=== PATIENT | female | born 1990 | race Caucasian/White ===

== ENCOUNTER 2022-05-25 17:33 | Observation (INO) | payer OTHER, MEDICAID, SELFPAY ==
[2022-05-25] VITALS (16 sets, daily range): BP systolic 122–163; BP diastolic 68–88; PULSE 110–121; RESP 18–30; TEMP 36.9–37.7; O2SAT 95–100; BMI 31.1
--- NOTE | 2022-05-25 17:48 | DI.RAD.S_ITS ---
PROCEDURE: XR CHEST 1V INDICATIONS: suspected sepsis TECHNIQUE: One view of the chest was acquired. COMPARISON: [facility], , CHEST 2 VIEW, 03/24/2011, 14:49. FINDINGS: Surgical changes and devices: There is a right internal jugular catheter with the tip projecting over the superior vena cava approximately 1.5 cm from the cavoatrial junction. Lungs and pleura: Lungs are clear. No pleural effusions or pneumothorax. Mediastinum: Mediastinal contours appear normal. Heart size is normal. Bones and chest wall: No suspicious bony lesions. Overlying soft tissues appear unremarkable. IMPRESSION: 1. No evidence of pneumothorax. Dictated by: Ki Swain M.D. on 05/25/2022 at 20:17 Approved by: Ki Swain M.D. on 05/25/2022 at 20:19
--- NOTE | 2022-05-25 18:15 | ED_ITS ---
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 Patient states 2 days ago she may or may not have scraped her left leg and developed redness swelling which has rapidly progressed up her leg. She states she went to [place] last night was not seen although the leg does have purple marker circling areas. Patient states she has had chills but no fevers. She denies chest pain or shortness of breath. She denies nausea or vomiting. She denies diarrhea constipation. She denies urinary symptoms. She has pain in the leg she states it hurts a lot to walk. Patient states no numbness or tingling. She states the redness has been spreading. Patient is denying any surgeries. She states she uses tobacco, she denies alcohol, she denies any street drugs such as marijuana or IV or injectable drugs. Related Data Home Medications Medication Instructions Recorded Confirmed [THYROID MEDICATION] ##0 03/26/17 Previous Rx's Medication Instructions Recorded amoxicillin 875 mg-potassium 875 mg PO BID #14 tabs 03/26/17 clavulanate 125 mg tablet (Augmentin) clindamycin HCl 300 mg capsule 300 mg PO Q6H #28 caps 03/26/17 Allergies Allergy/AdvReac Type Severity Reaction Status Date / Time acetaminophen [ACETAMINOPHEN] Allergy Unknown Verified 05/25/22 17:44 Review of Systems Review of Systems ROS Unobtainable: All systems reviewed & are unremarkable except as noted in HPI and below Patient History Social History Smoking Status: Current every day smoker Smoking Status: Current every day smoker tobacco type: cigarettes Substance Use Type: unknown Exam Narrative Exam Narrative: GENERAL: Alert and oriented x three, female in mild distress. HEENT: Head normocephalic, atraumatic, EOMI, pupils reactive, face symmetric, moist mucous membranes NECK: Supple, full range of motion CARDIOVASCULAR: Tachycardic. Regular rate and rhythm without murmurs, rubs or gallops. RESPIRATORY: Breath sounds equal bilaterally, no wheezes rales or rhonchi. ABDOMEN: Soft, nontender. Normoactive bowel sounds all 4 quadrants. No guarding or rebound, rigidity, no mass : No CVA tenderness EXTREMITIES: Normal range of motion, no clubbing. Neurovascularly intact. Patient has significant swelling of the lower extremity she had 2 large patches of erythema which were marked reportedly from yesterday 05 24, they have spread extensively patchy with erythema tracking up her leg NEUROLOGICAL: Cranial nerves II through XII grossly intact. Moving all extremities SKIN: Warm, dry, no petechiae, no rashes or lesions. Initial Vital Signs Initial Vital Signs: Vital Signs Temperature 98.4 F 05/25/22 17:44 Pulse Rate 118 H 05/25/22 17:44 Respiratory Rate 24 05/25/22 17:44 Blood Pressure 143/88 H 05/25/22 17:44 Pulse Oximetry 100 05/25/22 17:44 Oxygen Delivery Method 05/25/22 17:44 Procedures Central Line Placement Right IJ: Time Out Performed: Yes Patient Placed on Monitor/Pulse Ox: Yes MD Prep: mask, gown and gloves Central Line Prep: Povidone-Iodine 1%, Chlorhexidine scrub and sterile drapes applied Local Anesthetic: lidocaine 1% Amount of anesthesia used (mL): 5 Ultrasound Used for Placement: Yes Central Line Lumen Inserted: triple Post Procedure: sutured in place (device used.), good blood return, all ports aspirated, flushed, capped and sterile dressing applied Post Procedure X-Ray: tip of catheter in good position and no pneumothorax seen Patient Tolerated Procedure: Well Complications: other (patient had short run of tachycardia/irregular beats w/ guidewire pulled back and stopped.) Course Orders Ordered: ED Orders 05/25/22 17:48 XR chest 1V Stat EKG-12 Lead Stat RT Consult Eval and Treat NOW 05/25/22 18:00 COVID19 -Nasal RAPID/Pre-Proc Stat 05/25/22 18:40 Complete Blood Count AUTO DIFF Stat Comprehensive Metabolic Panel Stat Lipase Stat Procalcitonin Stat 05/25/22 20:09 CT LE LT w con Stat COVID19 -Nasal RAPID/Pre-Proc Stat 05/25/22 20:49 Lactate (Lactic Acid) Stat Partial Thromboplastin Time Stat Test Serum,Qual Stat Prothrombin Time INR Stat 05/25/22 21:00 Urine Drug Screen, Rapid Stat Urine Microscopic Stat 05/25/22 21:02 Blood Culture Stat Calcium Carbonate (Calcium Carbonate 500 Mg Tab) 1,000 mg PO Q4HR PRN PRN Reason: Dyspepsia Enoxaparin Sodium (Enoxaparin 40 Mg/0.4 Ml Syringe) 40 mg SUBCUT DAILY KATHRINE Sodium Chloride (Normal Saline 0.9%) 2,313.33 mls @ 771.11 mls/hr 30 ml/kg infuse over 3 hr (2313.33 ml) IV NOW ONE Stop: 05/25/22 23:08 Last Admin: 05/25/22 21:00 Dose: 771.11 mls/hr Documented By: SB Sodium Chloride (Normal Saline 0.9%) 1,000 mls @ 100 mls/hr IV CONT KATHRINE Naloxone HCl (Naloxone 0.4 Mg/Ml Vial) 0.2 mg IV Q2MIN PRN PRN Reason: Opiate Reversal Ondansetron HCl (Ondansetron 4 Mg/2 Ml Inj) 4 mg IV Q8HR PRN PRN Reason: Nausea And Vomiting Vancomycin HCl (Vancomycin Per Pharmacy) 1 request MISC NOW ONE Stop: 05/25/22 22:40 Discontinued Medications Sodium Chloride (Normal Saline 0.9%) 1,000 mls @ 1,000 mls/hr IV BOLUS ONE Stop: 05/25/22 18:47 Vancomycin HCl/Dextrose (Vancomycin) 1,500 mg in 300 mls @ 200 mls/hr IV NOW ONE Stop: 05/25/22 20:16 Last Admin: 05/25/22 21:21 Dose: 200 mls/hr Documented By: SB Cefepime HCl 2 gm/ Sodium (Chloride) 100 mls @ 200 mls/hr IV NOW ONE Stop: 05/25/22 22:02 Consultations Consultation #1: Dr. Espinal, orthopedic surgery. Discussed patient's physical exam findings as well as CT findings. She does have erythema over the knee but patchy in her infection appears to clearly have started in the lower half of her leg and not at the. She can bend her knee leg is overall painful but not significantly painful in comparison at the knee. Discussed possibility of septic arthritis he suspects this may be more reactive. We will be happy to consult and states that if concern for septic arthritis increases to be contacted and he will come in and tap the joint. Consultation #2: KACI Obrien, hospitalist discussed patient clearly has cellulitis no discrete abscess no air, or signs of gas. Discussed that patient has erythema and then tracking phlebitis up the leg my suspicion for septic joint is lower but that I did speak with Orthopedic surgery and they are available to tap the joint if needed. Discussed patient does have G6 PD deficiency, covered with broad- spectrum antibiotics does meet septic criteria. Accepted for inpatient. Vital Signs Vital signs: Vital Signs - 8 hr 05/25/22 17:44 05/25/22 18:28 05/25/22 18:30 Temperature 98.4 F Pulse Rate 118 H 118 H 117 H Respiratory Rate 24 22 23 Blood Pressure 143/88 H Pulse Oximetry 100 95 Oxygen Delivery Method Room Air 05/25/22 18:54 05/25/22 18:54 05/25/22 19:00 Temperature Pulse Rate 115 H Respiratory Rate 20 Blood Pressure 163/82 H 160/78 H Pulse Oximetry 100 Oxygen Delivery Method 05/25/22 19:00 05/25/22 19:30 05/25/22 20:00 Temperature Pulse Rate 112 H 117 H 110 H Respiratory Rate 21 18 24 Blood Pressure Pulse Oximetry 98 99 99 Oxygen Delivery Method 05/25/22 20:31 05/25/22 21:09 05/25/22 21:10 Temperature Pulse Rate 120 H 116 H 116 H Respiratory Rate 30 H 21 Blood Pressure Pulse Oximetry 98 99 100 Oxygen Delivery Method 05/25/22 21:10 05/25/22 21:30 05/25/22 21:30 Temperature Pulse Rate 116 H Respiratory Rate 23 Blood Pressure 143/78 H 136/86 Pulse Oximetry 99 Oxygen Delivery Method MDM - Skin/Abscess/Foreign Bdy Lab Data Result diagrams: 05/25/22 18:40 05/25/22 18:40 Labs: Lab Results 05/25/22 05/25/22 05/25/22 Range/Units 18:00 18:40 18:40 WBC 12.8 H (4.5-11.0) X10^3/uL RBC 4.00 (4.0-5.2) X10^6/uL Hgb 11.6 L (12.0-16.0) g/dL Hct 33.8 L (36-46) % MCV 84.6 (80-100) fL MCH 28.9 (26-34) PG MCHC 34.2 (30-36) % RDW 13.3 (11.6-14.8) % Plt Count 168 (150-400) X10^3/uL Neut % (Auto) 89.3 H (50-75) % Lymph % (Auto) 5.9 L (25-40) % [place] % (Auto) 2.7 L (3-14) % Eos % (Auto) 1.3 L (2-4) % Baso % (Auto) 0.8 (0-2) % Neut # (Auto) 64164 H (2558-0338) /uL Lymph # (Auto) 800 L (0977-2330) /uL [place] # (Auto) 300 (0-900) /uL Eos # (Auto) 200 (0-450) /uL Baso # (Auto) 100 (0-100) /uL WBC Morphology Comment RBC Morphology Normal morphology PT (10.1-12.7) SECONDS INR (0.9-1.3) APTT (26-36) SECONDS Sodium 130 L (137-145) mmol/L Potassium 3.4 (3.4-5.1) mmol/L Chloride 99 (98-107) mmol/L Carbon Dioxide 22 (22-32) mmol/L BUN 12 (7-17) mg/dL Creatinine 0.57 (0.52-1.04) mg/dL Estimated GFR > 60 (>60) mL/min BUN/Creatinine Ratio 21.1 (6-22) Glucose 116 H (70-100) mg/dL Lactate (0.7-2.1) mmol/L Calcium 8.2 L (8.4-10.2) mg/dL Total Bilirubin 0.7 (0.2-1.3) mg/dL AST 50 H (14-36) IU/L ALT 35 H (<35) IU/L Alkaline Phosphatase 77 (38-126) U/L Total Protein 7.2 (6.3-8.2) g/dL Albumin 3.5 (3.5-5.0) g/dL Globulin 3.7 (1.7-4.1) g/dL Albumin/Globulin Ratio 0.9 L (1.0-2.8) Lipase 17 L (23-300) U/L Procalcitonin 3.48 H (<0.5) ng/mL Serum , Qual (Negative) Urine RBC (0-5/HPF) Urine WBC (0-5/HPF) Ur Squamous Epith Cells (0-5/HPF) Urine Bacteria (None) Ur Culture Indicated? U Opiates 300ng/mL cut (Negative) Ur Oxycodone Screen (Negative) Urine Methadone Screen (Negative) Ur Barbiturates Screen (Negative) U Tricyclic Antidepress (Negative) Ur Phencyclidine Scrn (Negative) Ur Amphetamines Screen (Negative) U Methamphetamines Scrn (Negative) Ur MDMA Scrn (Ecstasy) (Negative) U Benzodiazepines Scrn (Negative) Urine Cocaine Screen (Negative) U Marijuana (THC) Screen (Negative) SARS-CoV-2 (PCR) Negative (Negative) 05/25/22 05/25/22 05/25/22 Range/Units 20:49 20:49 20:49 WBC (4.5-11.0) X10^3/uL RBC (4.0-5.2) X10^6/uL Hgb (12.0-16.0) g/dL Hct (36-46) % MCV (80-100) fL MCH (26-34) PG MCHC (30-36) % RDW (11.6-14.8) % Plt Count (150-400) X10^3/uL Neut % (Auto) (50-75) % Lymph % (Auto) (25-40) % [place] % (Auto) (3-14) % Eos % (Auto) (2-4) % Baso % (Auto) (0-2) % Neut # (Auto) (8299-2338) /uL Lymph # (Auto) (3426-2181) /uL [place] # (Auto) (0-900) /uL Eos # (Auto) (0-450) /uL Baso # (Auto) (0-100) /uL WBC Morphology Comment RBC Morphology PT 14.9 H (10.1-12.7) SECONDS INR 1.3 (0.9-1.3) APTT 29 (26-36) SECONDS Sodium (137-145) mmol/L Potassium (3.4-5.1) mmol/L Chloride (98-107) mmol/L Carbon Dioxide (22-32) mmol/L BUN (7-17) mg/dL Creatinine (0.52-1.04) mg/dL Estimated GFR (>60) mL/min BUN/Creatinine Ratio (6-22) Glucose (70-100) mg/dL Lactate 0.8 (0.7-2.1) mmol/L Calcium (8.4-10.2) mg/dL Total Bilirubin (0.2-1.3) mg/dL AST (14-36) IU/L ALT (<35) IU/L Alkaline Phosphatase (38-126) U/L Total Protein (6.3-8.2) g/dL Albumin (3.5-5.0) g/dL Globulin (1.7-4.1) g/dL Albumin/Globulin Ratio (1.0-2.8) Lipase (23-300) U/L Procalcitonin (<0.5) ng/mL Serum , Qual Negative (Negative) Urine RBC (0-5/HPF) Urine WBC (0-5/HPF) Ur Squamous Epith Cells (0-5/HPF) Urine Bacteria (None) Ur Culture Indicated? U Opiates 300ng/mL cut (Negative) Ur Oxycodone Screen (Negative) Urine Methadone Screen (Negative) Ur Barbiturates Screen (Negative) U Tricyclic Antidepress (Negative) Ur Phencyclidine Scrn (Negative) Ur Amphetamines Screen (Negative) U Methamphetamines Scrn (Negative) Ur MDMA Scrn (Ecstasy) (Negative) U Benzodiazepines Scrn (Negative) Urine Cocaine Screen (Negative) U Marijuana (THC) Screen (Negative) SARS-CoV-2 (PCR) (Negative) 05/25/22 05/25/22 Range/Units 21:00 21:00 WBC (4.5-11.0) X10^3/uL RBC (4.0-5.2) X10^6/uL Hgb (12.0-16.0) g/dL Hct (36-46) % MCV (80-100) fL MCH (26-34) PG MCHC (30-36) % RDW (11.6-14.8) % Plt Count (150-400) X10^3/uL Neut % (Auto) (50-75) % Lymph % (Auto) (25-40) % [place] % (Auto) (3-14) % Eos % (Auto) (2-4) % Baso % (Auto) (0-2) % Neut # (Auto) (2693-5329) /uL Lymph # (Auto) (0229-0006) /uL [place] # (Auto) (0-900) /uL Eos # (Auto) (0-450) /uL Baso # (Auto) (0-100) /uL WBC Morphology Comment RBC Morphology PT (10.1-12.7) SECONDS INR (0.9-1.3) APTT (26-36) SECONDS Sodium (137-145) mmol/L Potassium (3.4-5.1) mmol/L Chloride (98-107) mmol/L Carbon Dioxide (22-32) mmol/L BUN (7-17) mg/dL Creatinine (0.52-1.04) mg/dL Estimated GFR (>60) mL/min BUN/Creatinine Ratio (6-22) Glucose (70-100) mg/dL Lactate (0.7-2.1) mmol/L Calcium (8.4-10.2) mg/dL Total Bilirubin (0.2-1.3) mg/dL AST (14-36) IU/L ALT (<35) IU/L Alkaline Phosphatase (38-126) U/L Total Protein (6.3-8.2) g/dL Albumin (3.5-5.0) g/dL Globulin (1.7-4.1) g/dL Albumin/Globulin Ratio (1.0-2.8) Lipase (23-300) U/L Procalcitonin (<0.5) ng/mL Serum , Qual (Negative) Urine RBC None seen (0-5/HPF) Urine WBC 1-5/hpf (0-5/HPF) Ur Squamous Epith Cells 0-1 /hpf (0-5/HPF) Urine Bacteria Occasional (0-1) (None) Ur Culture Indicated? Cult not indicated U Opiates 300ng/mL cut Negative (Negative) Ur Oxycodone Screen Negative (Negative) Urine Methadone Screen Negative (Negative) Ur Barbiturates Screen Negative (Negative) U Tricyclic Antidepress Negative (Negative) Ur Phencyclidine Scrn Negative (Negative) Ur Amphetamines Screen Positive H (Negative) U Methamphetamines Scrn Positive H (Negative) Ur MDMA Scrn (Ecstasy) Negative (Negative) U Benzodiazepines Scrn Negative (Negative) Urine Cocaine Screen Negative (Negative) U Marijuana (THC) Screen Negative (Negative) SARS-CoV-2 (PCR) (Negative) Point of Care Testing Test Results Negative Urine Dip Bedside Urine Glucose Negative Bedside Urine Bilirubin - Negative Bedside Urine Ketone +/- 5 Urine Specific [place] 1.015 Bedside Urine Occult Blood - Negative Bedside Urine pH 6.0 Bedside Urine Protein + 30 Bedside Urine Urobilinogen 1+ 2mg Bedside Urine Nitrite - Negative Bedside Urine Leukocytes - Negative Esterase Imaging Data CT LE: Radiologist's Impression: Jovanna Pleitez??31??F??1990 ? Allergy/Adv: acetaminophen Close Lower Extremity CT (Signed) Ki Swain - 05/25/22 Chest X-Ray (Signed) Swain,Ki - 05/25/22 Launch?[place] [address] CT Scan Report Signed Patient: Jovanna Pleitez MR#: [id number] : 1990 Acct:[id number] Age/Sex: 31 / F Date of Service: 05/25/22 Loc: ED Accession Number: [id number] ?? Procedure: CT LE LT w con Ordering Provider: Rain Carrera D.O. PROCEDURE:? CT LE LT W CON ? INDICATIONS:? abscess, cellulitis, concern for air ? TECHNIQUE:? After the administration of intravenous contrast, 3 mm axial sections acquired of the left lower extremity, with coronal and sagittal reformats. ? ? COMPARISON:? None. ? FINDINGS:? Image quality:? Excellent.? ? Bones:? No discrete bony erosions or periosteal reaction.? No fractures or dislocation. ? Soft tissues:? There is subcutaneous fat stranding and skin thickening consistent with edema most prominent in the lower leg.? No discrete loculated fluid collections to suggest an abscess.? No soft tissue gas.? The visualized musculature appears preserved.? No intramuscular fluid collections or edema.? ? There is a small to moderate knee joint effusion with synovial thickening and enhancement as well as internal septations.? There are enlarged left inguinal lymph nodes measuring up to 1.7 cm in short axis which are nonspecific but likely reactive.? The visualized pelvis demonstrates a small amount of intraperitoneal free fluid which appears within physiologic limits. ? IMPRESSION:? ? 1.? Subcutaneous edema within the left lower extremity most prominent distally is nonspecific but is compatible with patient's history of cellulitis.? No discrete abscess collection identified.? No soft tissue gas or evidence of myositis. ? 2. Small to moderate left knee joint effusion with mild synovial thickening and enhancement as well as internal septations.? Findings are nonspecific but raise the possibility of septic arthritis and correlation is recommended clinically. ? 3. Enlarged left inguinal lymph nodes are also nonspecific but likely reactive.? ? ? Dictated by: Ki Swain M.D. on 05/25/2022 at 21:15 ? ? Approved by: Ki Swain M.D. on 05/25/2022 at 21:21 ECG Data Attestation: I personally reviewed and interpreted this ECG as follows: Prior ECG tracings: not available for review Interpretation: Sinus tachycardia, rate of 121, pr 130, qrs 90, qtc 465. V4-V6 inverted MDM Narrative Medical decision making narrative: This is a 31-year-old female with history of G6 PD, patient denies any drug abuse history her significant other noted in the past he is unaware of anything actively. Patient states only 2 days of symptoms but based on my exam I would be suspicious that it has been present longer, patient's has obvious cellulitis with high potential for abscess or infection in the distal leg tracking up her leg towards her groin. CT lower extremity from hip to the ankle does not show abscess, gas or free air but does show significant edema consistent with infection, some change in the knee joint itself this was discussed with Orthopedic surgery she has good motion at the knee and she has patchy changes over the knee where is majority of her infection is localized and started in the calf region. They can follow along with the patient and if needed will tap the joint. Patient was covered with Zosyn and vancomycin, given 30 cc/kilos bolus there was a delay as patient had very difficult access tried multiple times, Dr. Wood had tried ultrasound-guided IV which infiltrated, I placed a central line for access ability to get labs and fluid resuscitation and imaging. Patient has been accepted by KACI Obrien. Critical Care Time Critical Care Time Critical Care Time: Yes Total Critical Care Time: 50 Attestation: The high probability of a clinically significant, sudden or life threatening deterioration of the [cardiac, infectious] system(s) required my full and direct attention, intervention and personal management. The aggregate critical care time was [] minutes. This time is in addition to time spent performing reported procedures but includes the following: [x] Data Review and interpretation [x] Patient assessment and monitoring of vital signs [x] Documentation [x] Medication orders and management Discharge Plan Departure Patient Disposition: Admitted As Inpatient Clinical Impression: Sepsis, Cellulitis of left leg, Acute hyponatremia, Elevated LFTs Admit Date/Time: 05/25/22 22:23 Admit Provider: Verónica Obrien
[2022-05-25 18:49] LABS: COVID19 -Nasal RAPID Negative (Negative)
[2022-05-25 18:53] LABS: Basophils Absolute Auto 100 /uL (0-100); Basophils Percent Auto 0.8 % (0-2); Eosinophils Absolute Auto 200 /uL (0-450); Eosinophils Percent Auto 1.3 % (2-4); Hematocrit 33.8 % (36-46); Hemoglobin 11.6 g/dL (12.0-16.0); Lymphocytes Absolute Auto 800 /uL (1100-4500); Lymphocytes Percent Auto 5.9 % (25-40); Mean Corpuscular HGB Conc 34.2 % (30-36); Mean Corpuscular Hemoglobin 28.9 PG (26-34); Mean Corpuscular Volume 84.6 fL (80-100); Monocytes Absolute Auto 300 /uL (0-900); Monocytes Percent Auto 2.7 % (3-14); Neutrophils Absolute Auto 11400 /uL (1500-7000); Neutrophils Percent Auto 89.3 % (50-75); Platelet Count 168 X10^3/uL (150-400); Red Cell Distribution Width 13.3 % (11.6-14.8); White Blood Cell Count 12.8 X10^3/uL (4.5-11.0)
[2022-05-25 19:10] LABS: Alanine Aminotransferase 35 IU/L (<35); Albumin 3.5 g/dL (3.5-5.0); Albumin Globulin Ratio 0.9 (1.0-2.8); Alkaline Phosphatase 77 U/L (38-126); Aspartate Aminotransferase 50 IU/L (14-36); BUN Creatinine Ratio 21.1 (6-22); Bilirubin Total 0.7 mg/dL (0.2-1.3); Blood Urea Nitrogen 12 mg/dL (7-17); Calcium 8.2 mg/dL (8.4-10.2); Carbon Dioxide 22 mmol/L (22-32); Chloride 99 mmol/L (98-107); Estimated Glomerular Filt Rate > 60 mL/min (>60); Globulin 3.7 g/dL (1.7-4.1); Glucose 116 mg/dL (70-100); Lipase 17 U/L (23-300); Potassium 3.4 mmol/L (3.4-5.1); Sodium 130 mmol/L (137-145); Total Protein 7.2 g/dL (6.3-8.2)
[2022-05-25 19:19] LABS: HEMOLYSIS 53 (0-50)
--- NOTE | 2022-05-25 19:20 | PC.NURSE ---
Report received - assumed care of pt at this time - in to bedside - IV attempt unsuccessful - MD to place a central line
[2022-05-25 19:27] LABS: Procalcitonin 3.48 ng/mL (<0.5)
[2022-05-25 19:38] LABS: Add Manual Diff / Slide Review SLIDE REVIEW; RBC Morphology Normal Morphology
--- NOTE | 2022-05-25 19:45 | PC.NURSE ---
MD at bedside for central line placement - RN at bedside for assistance
--- NOTE | 2022-05-25 20:09 | DI.CT.S_ITS ---
PROCEDURE: CT LE LT W CON INDICATIONS: abscess, cellulitis, concern for air TECHNIQUE: After the administration of intravenous contrast, 3 mm axial sections acquired of the left lower extremity, with coronal and sagittal reformats. COMPARISON: None. FINDINGS: Image quality: Excellent. Bones: No discrete bony erosions or periosteal reaction. No fractures or dislocation. Soft tissues: There is subcutaneous fat stranding and skin thickening consistent with edema most prominent in the lower leg. No discrete loculated fluid collections to suggest an abscess. No soft tissue gas. The visualized musculature appears preserved. No intramuscular fluid collections or edema. There is a small to moderate knee joint effusion with synovial thickening and enhancement as well as internal septations. There are enlarged left inguinal lymph nodes measuring up to 1.7 cm in short axis which are nonspecific but likely reactive. The visualized pelvis demonstrates a small amount of intraperitoneal free fluid which appears within physiologic limits. IMPRESSION: 1. Subcutaneous edema within the left lower extremity most prominent distally is nonspecific but is compatible with patient's history of cellulitis. No discrete abscess collection identified. No soft tissue gas or evidence of myositis. 2. Small to moderate left knee joint effusion with mild synovial thickening and enhancement as well as internal septations. Findings are nonspecific but raise the possibility of septic arthritis and correlation is recommended clinically. 3. Enlarged left inguinal lymph nodes are also nonspecific but likely reactive. Dictated by: Ki Swain M.D. on 05/25/2022 at 21:15 Approved by: Ki Swain M.D. on 05/25/2022 at 21:21
--- NOTE | 2022-05-25 20:17 | PC.NURSE ---
Confirmation of Central Line placement confirmed by Dr. Carrera - permission to use line received
--- NOTE | 2022-05-25 20:19 | PC.NURSE ---
To CT via stretcher with tech
--- NOTE | 2022-05-25 20:29 | PC.NURSE ---
returns to the room from radiology via stretcher
[2022-05-25] MEDS: SODIUM CHLORIDE 0.9% 2,313.33 ML 771.11 ML IV (21:00)
--- NOTE | 2022-05-25 21:10 | PC.NURSE ---
up to bedside commode - clean catch UA collected at this time - dark yellow urine obtained
[2022-05-25 21:11] LABS: INR 1.3 (0.9-1.3); Prothrombin Time 14.9 SECONDS (10.1-12.7)
[2022-05-25 21:13] LABS: PTT Partial Thromboplastin Tim 29 SECONDS (26-36)
[2022-05-25 21:15] LABS: Lactate (Lactic Acid) 0.8 mmol/L (0.7-2.1)
--- NOTE | 2022-05-25 21:17 | PC.NURSE ---
moved to room 4 at this time via stretcher
[2022-05-25] MEDS: VANCOMYCIN 1,500 MG/300 ML PIGGYBACK 200 MG IV (21:21)
[2022-05-25 21:31] LABS: Pregnancy Test Serum,Qual Negative (Negative)
--- NOTE | 2022-05-25 21:45 | PC.NURSE ---
resting quietly in darkened room - pt continues to remain tachy at this time - IVF and ABX infusing without concern
[2022-05-25 21:47] LABS: UR Morphine/Opiate cutoff 300 Negative (Negative); Ur Creatinine Normal (Normal); Ur Specific Gravity Normal (Normal); Urine Amphetamines Positive (Negative); Urine Cocaine Negative (Negative); Urine Methamphetamines Positive (Negative); Urine Tetrahydrocannabinol Negative (Negative); Urine pH Normal (Normal)
[2022-05-25 21:48] LABS: Urine Barbiturates Negative (Negative); Urine Benzodiazepines Negative (Negative); Urine MDMA Negative (Negative); Urine Methadone Negative (Negative); Urine Oxycodone Negative (Negative); Urine Phencyclidine Negative (Negative); Urine Tricyclic Antidepressant Negative (Negative)
[2022-05-25 22:09] LABS: Bacteria Urine Occasional (0-1); Culture Indicated Urine Cult Not Indicated; RBC Urine None Seen (0-5/HPF); Squamous Epithelial Cell Urine 0-1 /HPF (0-5/HPF); WBC Urine 1-5/HPF (0-5/HPF)
--- NOTE | 2022-05-25 22:30 | PC.NURSE ---
No changes in pt status at this time
--- NOTE | 2022-05-25 22:43 | DI.US.S_ITS ---
PROCEDURE: US PERIPH VENOUS LOW EXTREM LT INDICATIONS: SWELLING; POSSIBLE ABSCESS/DVT TECHNIQUE: Real-time imaging, as well as color and pulse Doppler interrogation, were performed of the lower extremity deep veins from the inguinal ligament to the popliteal fossa. COMPARISON: None. FINDINGS: The common femoral, femoral and popliteal veins are normally compressible, and free of intraluminal thrombus. Color and pulse Doppler demonstrate normal phasic intraluminal flow. There is normal augmentation response to distal compression maneuver. IMPRESSION: No sonographic evidence of DVT. Dictated by: Herman Cleary M.D. on 05/26/2022 at 8:55 Approved by: Herman Cleary M.D. on 05/26/2022 at 8:56
--- NOTE | 2022-05-25 22:45 | P.HP_ITS ---
History of Present Illness History of Present Illness Date Patient Seen: 05/25/22 Time Patient Seen: 22:45 Chief complaint: Leg pain, Chills Narrative: Jovanna Pleitez 31-year-old female with reported G6 PD deficiency hemolytic anemia, hypothyroidism, Been unable to obtain medication.? States 2 days ago she may or may not have scraped her left leg and developed redness swelling which has rapidly progressed up her leg.? She states she went to [place] last ni ght was not seen although the leg does have purple marker circling areas.? Patient states she has had chills but no fevers.? She denies chest pain, shortness of breath, abd pain, nausea, vomiting, diarrhea, constipation, urinary symptoms, any other recent illness injury or trauma..? She has pain in the leg /10, worsens with weight-bearing and ambulation, denies numbness or tingling, notes redness has been spreading and increasing rapidly over the past 48 hours.? Patient is denying any surgeries.? She states she uses tobacco, she denies alcohol, she denies any street drugs such as marijuana or IV or injectable drugs.? In the ED patient was tachycardic heart rate 118, tachypneic respiratory rate 24, slightly elevated blood pressure 143/88, at the time of admit temp 98.4?, BP 136/86, continues to be slightly tachycardic 116 and tachypneic respiratory rate 23, O2 saturation 99% on room air. Patient is stable and in no acute distress at this time. WBC 12.8 with a left shift neutrophils 11,400, H&H 11.6/33.8, sodium 130, procalcitonin 3.48, lipase WNL, COVID negative, hCG negative, tox screen is positive for amphetamines and methamphetamines, ESR 45, CRP 20.5. EKG sinus tachycardia rate 121 inverted T-wave in V4 through V6 leads, chest x-ray was negative for any acute cardiopulmonary processes. Lower left leg CT:Subcutaneous edema within the left lower extremity most prominent distally, no discrete abscess, soft tissue gas or evidence of myositis. There is a small to moderate left knee joint effusion with mild synovial thickening and enhancement as well as internal septations possible septic arthritis, and enlarged left inguinal lymph nodes. Patient admitted for lower left leg cellulitis. ? Patient History Medical History (Updated 05/26/22 @ 03:33 [facility] Anemia, deficiency, G-6-PD History of substance abuse Hypothyroidism (acquired) Comment: No surgical history Family & Social History Family History Mother Cancer Grandmother Hypothyroid Safety & Behavioral: Feels Safe in Current Yes Environment Tobacco & Substance use: Smoking Status Current every day smoker Substance Use Type patient reports history of substance abuse, pos sible IV drug use, denies current use but is positive for methamphetamines and amphetamines on tox screen-today. DEnies ETOH use Meds Home Medications and Allergies Home Medications Medication Instructions Recorded Confirmed Type [THYROID MEDICATION] ##0 03/26/17 History amoxicillin 875 mg-potassium 875 mg PO BID #14 tabs 03/26/17 Rx clavulanate 125 mg tablet (Augmentin) clindamycin HCl 300 mg capsule 300 mg PO Q6H #28 caps 03/26/17 Rx Allergies Allergy/AdvReac Type Severity Reaction Status Date / Time acetaminophen [ACETAMINOPHEN] Allergy Unknown Verified 05/25/22 17:44 Review of Systems Review of Systems Narrative: All 12 point systems reviewed with the patient and are negative except otherwise documented. Exam Vital Signs (past 8 hours): - 05/25/22 17:44 05/25/22 18:28 05/25/22 18:30 Temperature 98.4 F Pulse Rate 118 H 118 H 117 H Respiratory Rate 24 22 23 Blood Pressure 143/88 H Pulse Oximetry 100 95 Oxygen Delivery Method Room Air 05/25/22 18:54 05/25/22 18:54 05/25/22 19:00 Temperature Pulse Rate 115 H Respiratory Rate 20 Blood Pressure 163/82 H 160/78 H Pulse Oximetry 100 Oxygen Delivery Method 05/25/22 19:00 05/25/22 19:30 05/25/22 20:00 Temperature Pulse Rate 112 H 117 H 110 H Respiratory Rate 21 18 24 Blood Pressure Pulse Oximetry 98 99 99 Oxygen Delivery Method 05/25/22 20:31 05/25/22 21:09 05/25/22 21:10 Temperature Pulse Rate 120 H 116 H 116 H Respiratory Rate 30 H 21 Blood Pressure Pulse Oximetry 98 99 100 Oxygen Delivery Method 05/25/22 21:10 05/25/22 21:30 05/25/22 21:30 Temperature Pulse Rate 116 H Respiratory Rate 23 Blood Pressure 143/78 H 136/86 Pulse Oximetry 99 Oxygen Delivery Method Oxygen Delivery Method Room Air Narrative Exam Narrative: General: Patient is a well-developed, well-nourished in no distress at this time. HEENT: Normocephalic, atraumatic, extraocular muscles intact, oral pharynx is clear and mucous membranes are moist. Neck is supple and symmetric, trachea is midline, no adenopathy, no thyroid enlargement, nontender, no masses palpated. Negative for JVD Chest: Normal AP diameter and contour without kyphoscoliosis, no nasal flaring, retractions, or tachypneic labored Lungs: Auscultation of all lung [place] are clear without adventitious sounds, wheezes, rhonchi, or rales. Cardio: S1 & S2 with regular rate and rhythm without murmur, rubs, or gallops, no carotid bruit, no cardiac pulsations present. Abdomen: Soft nontender, negative for organomegaly, or masses. Bowel sounds are present in all 4 quadrants without guarding or rebound, no CVA tenderness. Musculoskeletal: Muscle strength and tone are equal within normal limits. Full range of motion intact radial and pedal pulses are normal. EXTREMITIES: Normal range of motion, no clubbing.? Neurovascularly intact.? Patient has significant swelling of the lower extremity she had 2 large patches of erythema which were marked reportedly from yesterday 12 , they have spread extensively patchy with erythema tracking up her leg, left inguinal adenopathy Skin: Warm dry and intact without rashes, ulcerations or petechiae. Neuro: Alert and orientated x3, strength is +5/5 in all extremities, sensation to touch intact, no gross deficits noted of cranial nerves. Psych: Patient has a well-kept appearance, appropriate affect, mental status attitude thought context and judgment are appropriate for age. Objective Labs Result Diagrams: 05/25/22 18:40 05/25/22 18:40 Labs: Laboratory Results - last 24 hr 05/25/22 05/25/22 05/25/22 18:00 18:40 18:40 WBC 12.8 H RBC 4.00 Hgb 11.6 L Hct 33.8 L MCV 84.6 MCH 28.9 MCHC 34.2 RDW 13.3 Plt Count 168 Neut % (Auto) 89.3 H Lymph % (Auto) 5.9 L [place] % (Auto) 2.7 L Eos % (Auto) 1.3 L Baso % (Auto) 0.8 Neut # (Auto) 90569 H Lymph # (Auto) 800 L [place] # (Auto) 300 Eos # (Auto) 200 Baso # (Auto) 100 WBC Morphology Comment RBC Morphology Normal morphology PT INR APTT Sodium 130 L Potassium 3.4 Chloride 99 Carbon Dioxide 22 BUN 12 Creatinine 0.57 Estimated GFR > 60 BUN/Creatinine Ratio 21.1 Glucose 116 H Lactate Calcium 8.2 L Total Bilirubin 0.7 AST 50 H ALT 35 H Alkaline Phosphatase 77 Total Protein 7.2 Albumin 3.5 Globulin 3.7 Albumin/Globulin Ratio 0.9 L Lipase 17 L Procalcitonin 3.48 H Serum , Qual Urine RBC Urine WBC Ur Squamous Epith Cells Urine Bacteria Ur Culture Indicated? U Opiates 300ng/mL cut Ur Oxycodone Screen Urine Methadone Screen Ur Barbiturates Screen U Tricyclic Antidepress Ur Phencyclidine Scrn Ur Amphetamines Screen U Methamphetamines Scrn Ur MDMA Scrn (Ecstasy) U Benzodiazepines Scrn Urine Cocaine Screen U Marijuana (THC) Screen SARS-CoV-2 (PCR) Negative 05/25/22 05/25/22 05/25/22 20:49 20:49 20:49 WBC RBC Hgb Hct MCV MCH MCHC RDW Plt Count Neut % (Auto) Lymph % (Auto) [place] % (Auto) Eos % (Auto) Baso % (Auto) Neut # (Auto) Lymph # (Auto) [place] # (Auto) Eos # (Auto) Baso # (Auto) WBC Morphology Comment RBC Morphology PT 14.9 H INR 1.3 APTT 29 Sodium Potassium Chloride Carbon Dioxide BUN Creatinine Estimated GFR BUN/Creatinine Ratio Glucose Lactate 0.8 Calcium Total Bilirubin AST ALT Alkaline Phosphatase Total Protein Albumin Globulin Albumin/Globulin Ratio Lipase Procalcitonin Serum , Qual Negative Urine RBC Urine WBC Ur Squamous Epith Cells Urine Bacteria Ur Culture Indicated? U Opiates 300ng/mL cut Ur Oxycodone Screen Urine Methadone Screen Ur Barbiturates Screen U Tricyclic Antidepress Ur Phencyclidine Scrn Ur Amphetamines Screen U Methamphetamines Scrn Ur MDMA Scrn (Ecstasy) U Benzodiazepines Scrn Urine Cocaine Screen U Marijuana (THC) Screen SARS-CoV-2 (PCR) 05/25/22 05/25/22 21:00 21:00 WBC RBC Hgb Hct MCV MCH MCHC RDW Plt Count Neut % (Auto) Lymph % (Auto) [place] % (Auto) Eos % (Auto) Baso % (Auto) Neut # (Auto) Lymph # (Auto) [place] # (Auto) Eos # (Auto) Baso # (Auto) WBC Morphology Comment RBC Morphology PT INR APTT Sodium Potassium Chloride Carbon Dioxide BUN Creatinine Estimated GFR BUN/Creatinine Ratio Glucose Lactate Calcium Total Bilirubin AST ALT Alkaline Phosphatase Total Protein Albumin Globulin Albumin/Globulin Ratio Lipase Procalcitonin Serum , Qual Urine RBC None seen Urine WBC 1-5/hpf Ur Squamous Epith Cells 0-1 /hpf Urine Bacteria Occasional (0-1) Ur Culture Indicated? Cult not indicated U Opiates 300ng/mL cut Negative Ur Oxycodone Screen Negative Urine Methadone Screen Negative Ur Barbiturates Screen Negative U Tricyclic Antidepress Negative Ur Phencyclidine Scrn Negative Ur Amphetamines Screen Positive H U Methamphetamines Scrn Positive H Ur MDMA Scrn (Ecstasy) Negative U Benzodiazepines Scrn Negative Urine Cocaine Screen Negative U Marijuana (THC) Screen Negative SARS-CoV-2 (PCR) Assessment & Plan Assessment & Plan narrative: Jovanna Pleitez 31-year-old female with reported G6 PD deficiency hemolytic anemia, hypothyroidism, Been unable to obtain medication.? States 2 days ago she may or may not have scraped her left leg and developed redness swelling which has rapidly progressed up her leg, admitted for left leg cellulitis. 1. Lower left leg cellulitis, acute, present on admission -tachycardic HR 116 (increased sign of MRSA, tachypneic RR 23, WBC 12.8, neut 11,400, sodium 130, procalcitonin 3.48, ESR 45, CRP 20.5. -lipase WNL, COVID negative, hCG negative, -Lower left leg CT:Subcutaneous edema within the left lower extremity most prominent distally, no discrete abscess, soft tissue gas or evidence of myositis. There is a small to moderate left knee joint effusion with mild synovial thickening and enhancement as well as internal septations possible septic arthritis, and enlarged left inguinal lymph nodes. -Monitor for bacteremia, endocarditis, septic arthritis, osteomyelitis, metastatic infection, sepsis, and toxic shock syndrome, gas gangrene, necrotizing fasciitis. -in ED: Cefepime and vancomycin, aggressive bolus hydration. -central right line placed -started vancomycin for strep and MRSA coverage-MRSA pending -NS@100cc/HR -blood cultures pending. -elevate extremity, apply ice as needed,pain and inflammation control -ED discuss case with Dr. Espinal, placed consult for Dr. Espinal -Left lower extremity Doppler ordered for tomorrow-consider possible left lower extremity MRI rule out osteomyelitis 2. G6 PD deficiency-hemolytic anemia, acute on chronic, present on admission -H&H 11.6/33.8 upon admit no comparison laboratory findings available. 3. Hypothyroidism, acquired, acute on chronic, present on admission -patient is noncompliant with medication and has not been taking any thyroid placement for some time. -order TSH with free T4 4. Positive tox screen, acute, present on admission -suspect ongoing substance use-patient denies -tox screen is positive for amphetamines and methamphetamines -monitor for withdrawal symptoms -DELIVERY TRUCK DRIVER consult placed for substance use eval. 5. Obesity, acute on chronic, present on admission -dietary consult ordered regarding nutritional education and information for dietary, lifestyle, exercise, and weight changes. -the patient is at much higher risk for medical and surgical complications due to obesity as it relates to acute illness. The patient's obesity increases the difficulty and complexity of medical and/or surgical interventions, management and increases the chances of poor outcome such as morbidity and mortality as well as impaired wound healing. Code status:Full Surrogate decision maker: Osiris Pleitez Mother COVID PCR:Negative DVT/VTE prophylaxis: Lovenox and SCD on right leg only Disposition: Patient admitted to acute care for IV treatment, fluid rehydration, and orthopedic/possible infectious disease consult. Expected length of stay greater than 2 midnights I have utilized all available immediate resources to obtain, update, or review the patient's current medications. I confirmed that the patient's advanced care plan is present, Code status is documented and/or surrogate decision maker is listed in the patient's medical record. I have personally reviewed patient's chart notes from PCP, specialists, diagnostic imaging, and laboratory, Time Spent With Patient Critical Care time: I spent a total of [] minutes of critical care time on this patient's care today; this time is exclusive of procedural time.
[2022-05-25 23:06] LABS: Magnesium 1.7 mg/dL (1.6-2.3)
--- NOTE | 2022-05-25 23:10 | PC.NURSE ---
to the floor via stretcher with PROCESSING LEAD - vancomycin and NS continues to infuse
[2022-05-25 23:17] LABS: C-Reactive Protein Quant 20.5 mg/dL (<1.0)
[2022-05-25 23:18] LABS: Erythrocyte Sedimentation Rate 45 MM/HR (0-20)
[2022-05-25 23:33] LABS: TSH w/ Reflex to FT4 6.32 uIU/mL (0.47-4.68)
[2022-05-26] VITALS (10 sets, daily range): BP systolic 113–132; BP diastolic 61–85; PULSE 92–100; RESP 20–24; TEMP 35.3–36.7; O2SAT 95–99
[2022-05-26] MEDS: CEFEPIME 2 GM in SODIUM CHLORIDE 0.9% 100 ML IV (00:02)
[2022-05-26] MEDS: SODIUM CHLORIDE 0.9% 1,000 ML 100 ML IV (00:03)
[2022-05-26 01:47] LABS: Free T4, Direct Thyroxine 1.08 ng/dL (0.78-2.19)
[2022-05-26] MEDS: IBUPROFEN 400 MG TABLET 800 MG PO ×2 (05:53→16:40)
[2022-05-26] MEDS: OXYCODONE IR 5 MG TABLET PO (05:53)
[2022-05-26] MEDS: LEVOTHYROXINE 25 MCG TABLET 12.5 MCG PO (05:53)
[2022-05-26 05:56] LABS: Add Manual Diff / Slide Review NO; Basophils Absolute Auto 0 /uL (0-100); Basophils Percent Auto 0.1 % (0-2); Eosinophils Absolute Auto 0 /uL (0-450); Eosinophils Percent Auto 0.1 % (2-4); Hematocrit 29.5 % (36-46); Hemoglobin 10.1 g/dL (12.0-16.0); Lymphocytes Absolute Auto 800 /uL (1100-4500); Lymphocytes Percent Auto 9.4 % (25-40); Mean Corpuscular HGB Conc 34.4 % (30-36); Mean Corpuscular Hemoglobin 29.1 PG (26-34); Mean Corpuscular Volume 84.5 fL (80-100); Monocytes Absolute Auto 500 /uL (0-900); Monocytes Percent Auto 5.8 % (3-14); Neutrophils Absolute Auto 7300 /uL (1500-7000); Neutrophils Percent Auto 84.6 % (50-75); Platelet Count 128 X10^3/uL (150-400); Red Blood Cell Count 3.49 X10^6/uL (4.0-5.2); Red Cell Distribution Width 13.5 % (11.6-14.8); White Blood Cell Count 8.7 X10^3/uL (4.5-11.0)
[2022-05-26 05:58] LABS: BUN Creatinine Ratio 15.7 (6-22); Blood Urea Nitrogen 8 mg/dL (7-17); Calcium 7.5 mg/dL (8.4-10.2); Carbon Dioxide 22 mmol/L (22-32); Chloride 104 mmol/L (98-107); Estimated Glomerular Filt Rate > 60 mL/min (>60); Glucose 98 mg/dL (70-100); HEMOLYSIS < 15 (0-50); Potassium 3.3 mmol/L (3.4-5.1); Sodium 132 mmol/L (137-145)
[2022-05-26 06:07] LABS: NT-proBNP (BNP-Adult 18+) 356 pg/mL (<125)
[2022-05-26 06:22] LABS: Lactate (Lactic Acid) 0.6 mmol/L (0.7-2.1)
[2022-05-26] MEDS: VANCOMYCIN 1,250 MG/250 ML PIGGYBACK 166.667 MG IV (09:30)
[2022-05-26] MEDS: CLINDAMYCIN 600 MG/50 ML PIGGYBACK 50 MG IV ×2 (10:10→19:54)
--- NOTE | 2022-05-26 10:22 | PT-IP ANOTE ---
Received PT orders and reviewed the chart. Discussed pt at AM interdisciplinary rounds. Hospitalist stated pt has no PT needs. Will complete the order.
[2022-05-26] MEDS: MAGNESIUM CHLORIDE 64 MG TABLET 128 MG PO (10:25)
[2022-05-26] MEDS: HYDROMORPHONE 1 MG INJ IV (10:25)
[2022-05-26] MEDS: POTASSIUM CHLORIDE 20 MEQ TAB 40 MEQ PO ×3 (10:27→17:16)
[2022-05-26] MEDS: ENOXAPARIN 40 MG/0.4 ML SYRINGE SUBCUT (10:30)
[2022-05-26] MEDS: OXYCODONE IR 10 MG TABLET PO (12:29)
--- NOTE | 2022-05-26 13:22 | PC.NURSE ---
Went into PT's room and asked if I could take 11 AM vitals and she said No thats not necessary and told me to leave her room.
--- NOTE | 2022-05-26 14:33 | CM.IDA ---
Initial DCP Assessment Patient is 31 y/o female who presents to due to concern for swelling of lower left extremity. Per, EMR patient reports she went to hospital at [place] last night as well. Patient was admitted to due to concern for lower left leg cellulitis. Patient is currently on IV antibiotics and consult is placed with Dr. Espinal. Patient denies current PCP, she states she has not seen PCP since before Covid-19. Patient endorses interest for PCP. Patient's PCP is listed as Dr. Abraham Armstrong. Patient has [employer] Medicaid insurance. Patient has hx of Anemia, Hypothyroidism and hx of substance use. Patient toxicology screen is positive for Amphetamines and Methamphetamines. HOLTER SCANNING TECHNICIAN enters room to meet with patient. Patient presents as A/Ox3, patient endorses independence with ADLs and drives at baseline. Patient endorses that she resides in [place] with a friend and listed address in EMR is her mother's address/patient's mailing address. Patient endorses that her boyfriend drove her to the ED and her mother or boyfriend can pick her up upon d/c. HOLTER SCANNING TECHNICIAN asks patient about substance use. Patient denies current substance use but endorses hx of substance use. When asked further, patient states she used substances years ago when asked what substances, patient states I don't want to talk about it Patient denies offer for SLIM resources or DCP services. HOLTER SCANNING TECHNICIAN meets with TAN Page, it was reported that patient requested a female nurse. Kaylee RN states that VOCATIONAL AIDE observed concern that patient may be using substances during stay at the hospital due to change in behavior and hiding things under blanket upon entering room. HOLTER SCANNING TECHNICIAN informs Acute care/manager neonatal TAN Riley who proceeds with behavior plan and illegal substance protocol. Per Rosemary, patient allowed RN to search belongings and no substances were found. Patient later endorses that she used substances prior to hospital stay due to leg pain. Kaylee RN endorses concern for patient's inability to walk with swollen leg and need for FWW to get to bathroom. HOLTER SCANNING TECHNICIAN informs Hospitalist Dr. Becerra and PT regarding this. Plan is to address cellulitis prior to evaluating need for FWW and PT. Plan: Patient's expected stay likely to be greater than 2 midnights per EMR, DCP to f/u with patient needs and POC re- Ortho consult. Patient likely to d/c back to home with no needs, Boyfriend or mother can provide ride upon d/c. OLVIN Lopez Discharge Planning/Care Management Advanced directive, confirm from FAMILY Start: 05/26/22 01:54 Freq: Q24H Status: Active Protocol: Document 05/26/22 03:06 MS (Rec: 05/26/22 03:06 MS [id number]) Advance Directive, confirm on record Time 03:06 Person contacted Pt Copy received No CM Discharge Assessment Start: 05/26/22 14:30 Freq: Status: Active Protocol: Document 05/26/22 14:31 LN (Rec: 05/26/22 14:33 LN [id number]) Discharge Planning Assessment Assigned Water Pollution Control Technician OLVIN Walters Advance Directives? No Advance Directives on File No History Provided By Patient Has Patient been admitted in last 30 No days? Prior Living Arrangements House Household Members friend(s) Type of transporation used prior to Drives own vehicle admit Independent with ADL's Yes Is patient alert and oriented? Yes Referrals Initiated None needed Please Provide Date Initial DC 05/26/22 Assessment Was Performed
--- NOTE | 2022-05-26 15:23 | PC.NURSE ---
1445 - Care team expressed concerns with a change in patient behavior follow a visitor. Patient was reported as agitated and anxious prior to visitor arrival, and calm and drowsy upon departure. Care team is concerned with the use of illegal substances while admitted for care. The doctor of nursing practice, Kami and myself entered the room, patient was sleeping. Patient needed stimuli to awaken. I explained to her the concerns. The patient was calm, and offered to allow a search of all of her belongings. The patient got out of bed and emptied contents of her purse including makeup case, wallet and unzipped all pockets for viewing. Bag with clothing also checked. Patient was notified that hospital policy would limit visitors and necessitate a behavioral contract if concerns of use while an in-patient continued. Patient states that she does use occasionally, and used prior to arrival related to self-medicating for pain, but she states that she does not use daily. Patient was calm and cooperative. No illegal substances identified at this time. Dr. Becerra notified of above.
[2022-05-26] MEDS: VANCOMYCIN 1,250 MG/250 ML PIGGYBACK 250 MG IV (16:40)
--- NOTE | 2022-05-26 17:30 | PM.PN.1 ---
Subjective Subjective Date Patient Seen: 05/26/22 Interval history: 31 year old female admitted with Left leg cellulitis. Reports improvement slightly in swelling today, but continues to have worsening pain. Pain medications were increased. Clindamycin added given bullous component for possible toxin production. Exam Vital Signs (past 8 hours): - 05/26/22 11:00 05/26/22 15:00 Pulse Oximetry 95 95 Oxygen Delivery Method Room Air Room Air Oxygen Delivery Method Room Air Oxygen Flow Rate 0 Narrative Exam Narrative: General:? Patient is well developed and well nourished, in no distress at this time. HEENT:? Normocephalic, atraumatic, extraocular muscles intact, oral pharynx is clear and mucous membranes are moist. Neck: supple and symmetric, trachea is midline, no cervical adenopathy. Negative for JVD. R IJ in place without erythema or warmth. Chest:? Normal AP diameter and contour without kyphoscoliosis, no tachypnea, equal chest rise bilaterally. Lungs:? CTA b/l no wheezing rhonchi or rales. Cardio:?RRR no m/r/g. Abdomen: S NT ND. No CVA tenderness. Musculoskeletal:? Muscle strength and tone are equal within normal limits, no deformity. Extremities: LLE edema with cellulitis noted below. No cyanosis or clubbing. Skin:? Pale,?left leg erythema, circumferential around calf with large bullae posteriorly, streaking noted in her left calf. Reports improvement in swelling today. Neuro:? Alert and orientated x3,? sensation to touch intact in all extremities, no gross deficits noted of cranial nerves. Psych:? Patient has a well-kept appearance, appropriate affect, mental status attitude thought context and judgment are appropriate for age. Objective Labs Result Diagrams: 05/26/22 05:35 05/26/22 05:35 Labs: Laboratory Results - last 24 hr 05/25/22 05/25/22 05/25/22 18:00 18:40 18:40 WBC 12.8 H RBC 4.00 Hgb 11.6 L Hct 33.8 L MCV 84.6 MCH 28.9 MCHC 34.2 RDW 13.3 Plt Count 168 Neut % (Auto) 89.3 H Lymph % (Auto) 5.9 L [place] % (Auto) 2.7 L Eos % (Auto) 1.3 L Baso % (Auto) 0.8 Neut # (Auto) 26381 H Lymph # (Auto) 800 L [place] # (Auto) 300 Eos # (Auto) 200 Baso # (Auto) 100 WBC Morphology Comment RBC Morphology Normal morphology ESR PT INR APTT Sodium 130 L Potassium 3.4 Chloride 99 Carbon Dioxide 22 BUN 12 Creatinine 0.57 Estimated GFR > 60 BUN/Creatinine Ratio 21.1 Glucose 116 H Lactate Calcium 8.2 L Magnesium Total Bilirubin 0.7 AST 50 H ALT 35 H Alkaline Phosphatase 77 C-Reactive Protein NT-Pro-B Natriuret Pep Total Protein 7.2 Albumin 3.5 Globulin 3.7 Albumin/Globulin Ratio 0.9 L Lipase 17 L Procalcitonin 3.48 H TSH Free T4 Serum , Qual Urine RBC Urine WBC Ur Squamous Epith Cells Urine Bacteria Ur Culture Indicated? Nasal Screen MRSA (PCR) U Opiates 300ng/mL cut Ur Oxycodone Screen Urine Methadone Screen Ur Barbiturates Screen U Tricyclic Antidepress Ur Phencyclidine Scrn Ur Amphetamines Screen U Methamphetamines Scrn Ur MDMA Scrn (Ecstasy) U Benzodiazepines Scrn Urine Cocaine Screen U Marijuana (THC) Screen SARS-CoV-2 (PCR) Negative 05/25/22 05/25/22 05/25/22 20:49 20:49 20:49 WBC RBC Hgb Hct MCV MCH MCHC RDW Plt Count Neut % (Auto) Lymph % (Auto) [place] % (Auto) Eos % (Auto) Baso % (Auto) Neut # (Auto) Lymph # (Auto) [place] # (Auto) Eos # (Auto) Baso # (Auto) WBC Morphology Comment RBC Morphology ESR PT 14.9 H INR 1.3 APTT 29 Sodium Potassium Chloride Carbon Dioxide BUN Creatinine Estimated GFR BUN/Creatinine Ratio Glucose Lactate 0.8 Calcium Magnesium Total Bilirubin AST ALT Alkaline Phosphatase C-Reactive Protein NT-Pro-B Natriuret Pep Total Protein Albumin Globulin Albumin/Globulin Ratio Lipase Procalcitonin TSH Free T4 Serum , Qual Negative Urine RBC Urine WBC Ur Squamous Epith Cells Urine Bacteria Ur Culture Indicated? Nasal Screen MRSA (PCR) U Opiates 300ng/mL cut Ur Oxycodone Screen Urine Methadone Screen Ur Barbiturates Screen U Tricyclic Antidepress Ur Phencyclidine Scrn Ur Amphetamines Screen U Methamphetamines Scrn Ur MDMA Scrn (Ecstasy) U Benzodiazepines Scrn Urine Cocaine Screen U Marijuana (THC) Screen SARS-CoV-2 (PCR) 05/25/22 05/25/22 05/25/22 20:49 20:49 20:49 WBC RBC Hgb Hct MCV MCH MCHC RDW Plt Count Neut % (Auto) Lymph % (Auto) [place] % (Auto) Eos % (Auto) Baso % (Auto) Neut # (Auto) Lymph # (Auto) [place] # (Auto) Eos # (Auto) Baso # (Auto) WBC Morphology Comment RBC Morphology ESR 45 H PT INR APTT Sodium Potassium Chloride Carbon Dioxide BUN Creatinine Estimated GFR BUN/Creatinine Ratio Glucose Lactate Calcium Magnesium 1.7 Total Bilirubin AST ALT Alkaline Phosphatase C-Reactive Protein 20.5 H NT-Pro-B Natriuret Pep Total Protein Albumin Globulin Albumin/Globulin Ratio Lipase Procalcitonin TSH 6.32 H Free T4 1.08 Serum , Qual Urine RBC Urine WBC Ur Squamous Epith Cells Urine Bacteria Ur Culture Indicated? Nasal Screen MRSA (PCR) U Opiates 300ng/mL cut Ur Oxycodone Screen Urine Methadone Screen Ur Barbiturates Screen U Tricyclic Antidepress Ur Phencyclidine Scrn Ur Amphetamines Screen U Methamphetamines Scrn Ur MDMA Scrn (Ecstasy) U Benzodiazepines Scrn Urine Cocaine Screen U Marijuana (THC) Screen SARS-CoV-2 (PCR) 05/25/22 05/25/22 05/26/22 21:00 21:00 00:25 WBC RBC Hgb Hct MCV MCH MCHC RDW Plt Count Neut % (Auto) Lymph % (Auto) [place] % (Auto) Eos % (Auto) Baso % (Auto) Neut # (Auto) Lymph # (Auto) [place] # (Auto) Eos # (Auto) Baso # (Auto) WBC Morphology Comment RBC Morphology ESR PT INR APTT Sodium Potassium Chloride Carbon Dioxide BUN Creatinine Estimated GFR BUN/Creatinine Ratio Glucose Lactate Calcium Magnesium Total Bilirubin AST ALT Alkaline Phosphatase C-Reactive Protein NT-Pro-B Natriuret Pep Total Protein Albumin Globulin Albumin/Globulin Ratio Lipase Procalcitonin TSH Free T4 Serum , Qual Urine RBC None seen Urine WBC 1-5/hpf Ur Squamous Epith Cells 0-1 /hpf Urine Bacteria Occasional (0-1) Ur Culture Indicated? Cult not indicated Nasal Screen MRSA (PCR) Negative for mrsa U Opiates 300ng/mL cut Negative Ur Oxycodone Screen Negative Urine Methadone Screen Negative Ur Barbiturates Screen Negative U Tricyclic Antidepress Negative Ur Phencyclidine Scrn Negative Ur Amphetamines Screen Positive H U Methamphetamines Scrn Positive H Ur MDMA Scrn (Ecstasy) Negative U Benzodiazepines Scrn Negative Urine Cocaine Screen Negative U Marijuana (THC) Screen Negative SARS-CoV-2 (PCR) 05/26/22 05/26/22 05/26/22 05:35 05:35 05:35 WBC 8.7 RBC 3.49 L Hgb 10.1 L Hct 29.5 L MCV 84.5 MCH 29.1 MCHC 34.4 RDW 13.5 Plt Count 128 L Neut % (Auto) 84.6 H Lymph % (Auto) 9.4 L [place] % (Auto) 5.8 Eos % (Auto) 0.1 L Baso % (Auto) 0.1 Neut # (Auto) 7300 H Lymph # (Auto) 800 L [place] # (Auto) 500 Eos # (Auto) 0 Baso # (Auto) 0 WBC Morphology Comment RBC Morphology ESR PT INR APTT Sodium 132 L Potassium 3.3 L Chloride 104 Carbon Dioxide 22 BUN 8 Creatinine 0.51 L Estimated GFR > 60 BUN/Creatinine Ratio 15.7 Glucose 98 Lactate 0.6 L Calcium 7.5 L Magnesium Total Bilirubin AST ALT Alkaline Phosphatase C-Reactive Protein NT-Pro-B Natriuret Pep 356 H Total Protein Albumin Globulin Albumin/Globulin Ratio Lipase Procalcitonin TSH Free T4 Serum , Qual Urine RBC Urine WBC Ur Squamous Epith Cells Urine Bacteria Ur Culture Indicated? Nasal Screen MRSA (PCR) U Opiates 300ng/mL cut Ur Oxycodone Screen Urine Methadone Screen Ur Barbiturates Screen U Tricyclic Antidepress Ur Phencyclidine Scrn Ur Amphetamines Screen U Methamphetamines Scrn Ur MDMA Scrn (Ecstasy) U Benzodiazepines Scrn Urine Cocaine Screen U Marijuana (THC) Screen SARS-CoV-2 (PCR) [facility] Medical History (Updated 05/26/22 @ 03:33 by LENIN Jansen) Anemia, deficiency, G-6-PD History of substance abuse Hypothyroidism (acquired) Family History Mother Cancer Grandmother Hypothyroid Social History household members: friend(s) Smoking Status: Current every day smoker Assessment & Plan Assessment & Plan narrative: Jovanna Pleitez 31-year-old female with reported G6 PD deficiency hemolytic anemia, hypothyroidism admitted with L leg cellulitis. 1. Lower left leg cellulitis, acute, present on admission -US negative for DVT -significant swelling, pain, and with tracking will require a few days of antibiotic therapy. -slowly improved today, continue IV therapies. initially on cefepime and vanc. Will change to ceftriaxone and clinda for toxin production, with vanco per pharmacy for now. 2. G6 PD deficiency-hemolytic anemia, acute on chronic, present on admission -H&H 11.6/33.8 upon admit no comparison laboratory findings available. 10.1 today will continue to monitor. 3. Hypothyroidism, acquired, acute on chronic, present on admission -patient is noncompliant with medication and has not been taking any thyroid placement for some time. -Tsh slightly elevated at 6., normal free t4. Will hold on supplementation at this time. 4. Positive tox screen, acute, present on admission -suspect ongoing substance use-patient denies -tox screen is positive for amphetamines and methamphetamines -monitor for withdrawal symptoms -GALLEY HAND consult placed for substance use eval. 5. Obesity, acute on chronic, present on admission -dietary consult ordered regarding nutritional education and information for dietary, lifestyle, exercise, and weight changes. -the patient is at much higher risk for medical and surgical complications due to obesity as it relates to acute illness. The patient's obesity increases the difficulty and complexity of medical and/or surgical interventions, management and increases the chances of poor outcome such as morbidity and mortality as well as impaired wound healing. Code status:Full Surrogate decision maker: Osiris Pleitez Mother COVID PCR:Negative DVT/VTE prophylaxis: Lovenox and SCD on right leg only Disposition: changed to observation per outside review. Suspect she will need continued IV antibiotics for the next few days based on current pain, swelling, and appearance of cellulitis prior to discharge home. Time Spent With Patient Critical Care time: I spent a total of [] minutes of critical care time on this patient's care today; this time is exclusive of procedural time.
[2022-05-26] MEDS: cefTRIAXone 1,000 MG in SODIUM CHLORIDE 0.9% 100 ML 200 MG IV (18:42)
--- NOTE | 2022-05-26 19:32 | PC.NURSE ---
alert, oriented. voices needs. sitting on edge of bed at beginning of shift. requesting to get OOB to toilet. almost toppled over due to the pain/stiffness in her left leg/foot. SBA to mod assist to ambulate the 8 feet to the bathroom. declined offer of sock on Right foot- strongly encouraged her to keep her feet covered due to the floors not being clean. her boyfriend is in the room visiting at this time. he brought her a green bag w/ some snacks and drinks. patients leg is severely red, hot to the touch, tender. large intact water blister to calf area swabbed w/ skin prep to keep it from popping. patient allowed ice pack on leg and agreed to elevate Leg higher than her heart for a few hours. this was very helpful as the redness seemed to decrease. large purple lumps on front of leg is the most painful part of her leg per patients report. NPO status d'/cd and general diet ordered. 3lumen ij is uncovered, dressing is flapping around and insertion site was exposed to the air. this was reinforced immediately, after cleansed. IVF and iv abx tolerated. DRAMA TEACHER reported to this nurse that patient became startled when slip mixer walked into room after knocking. please dont come in unless i say to come in moved the green bag closer to her abdomen and covered it w/ a blanket. slip mixer reported this to RN, and upon assessment, it appears patients demeanor and mood changed in a short time, was noted to be nodding off, and very diaphoretic. spoke w/ pharmacy about a lovenox injection that was on the counter during this morning director [employer]. when i returned to the room after obtaining a flush/tubing the lovenox was not on the counter. a 2nd dose was retrieved from the [facility]. above info was relayed to Rosemary, and coordinator Kami. the two ladies spoke w/ the patient about possible drug use in the room as this could be a big problem for interactions w/ her abx, other meds and general health and safety. patient denied this and nothign was found in her belongings. report to inocencio and patient appeared to be sleepy and comfortable, no PRN requests.
[2022-05-26 23:26] LABS: Vancomycin Trough 10.8 ug/mL (10-20)
[2022-05-27] MEDS: VANCOMYCIN 1,250 MG/250 ML PIGGYBACK 166.667 MG IV ×2 (00:16→06:47)
[2022-05-27] MEDS: CLINDAMYCIN 600 MG/50 ML PIGGYBACK 50 MG IV (01:59)
[2022-05-27 02:19] VITALS: BP 108/71; PULSE 87; RESP 18; TEMP 36.4; O2SAT 100
--- NOTE | 2022-05-27 05:41 | PC.NURSE ---
Pt refusing blood draw stating 'you took enough earlier' and 'i dont need it'. RN educated on importance of checking how infection is going, still declined.
[2022-05-27 06:50] VITALS: BP 115/76; PULSE 93; RESP 20; TEMP 36.7; O2SAT 100
--- NOTE | 2022-05-27 07:40 | PM.CN ---
History of Present Illness Consult details Date Patient Seen: 05/27/22 Time Patient Seen: 07:40 Chief complaint: Leg pain, Chills Narrative: Jovanna Pleitez 31-year-old female with reported G6 PD deficiency hemolytic anemia, hypothyroidism, been unable to obtain medication.? States 3 days ago she may or may not have scraped her left leg and developed redness swelling which has rapidly progressed up her leg.??Started on antibiotics in ED. US of LE neg for DVT, CT of LE negative for abscess, but showed changes that might be c/w septic arthritis of knee. Meds Home Medications and Allergies Home Medications Medication Instructions Recorded Confirmed Type amoxicillin 875 mg-potassium 875 mg PO BID #14 tabs 03/26/17 05/26/22 Rx clavulanate 125 mg tablet (Augmentin) clindamycin HCl 300 mg capsule 300 mg PO Q6H #28 caps 03/26/17 05/26/22 Rx Allergies Allergy/AdvReac Type Severity Reaction Status Date / Time acetaminophen [ACETAMINOPHEN] Allergy Unknown Verified 05/25/22 17:44 Review of Systems Review of Systems ROS: Yes All systems reviewed with the patient and are negative except as otherwise documented Musculoskeletal Comments: Pain in left leg, but pt states that pain and swelling have significantly decreased since yesterday. Exam Vital Signs (past 8 hours): - 05/27/22 02:19 05/27/22 03:00 05/27/22 06:50 Temperature 97.5 F L 98.1 F Pulse Rate 87 93 H Respiratory Rate 18 20 Blood Pressure 108/71 115/76 Pulse Oximetry 100 100 Oxygen Delivery Method Room Air Oxygen Flow Rate 0 Oxygen Delivery Method Room Air Oxygen Flow Rate 0 Narrative Exam Narrative: Left knee does not appear grossly swollen. There is no erythema or warmth about the joint. Left leg redness appears to have decreased compared to outlines from yesterday. Objective Labs Result Diagrams: 05/26/22 05:35 05/26/22 05:35 Labs: Laboratory Results - last 24 hr 05/26/22 22:55 Vancomycin Trough 10.8 PFSH Medical History (Updated 05/26/22 @ 03:33 by LENIN Jansen) Anemia, deficiency, G-6-PD History of substance abuse Hypothyroidism (acquired) Family History Mother Cancer Grandmother Hypothyroid Social History household members: friend(s) Tobacco & Substance Use Smoking Status: Current every day smoker Assessment & Plan Assessment and plan (1) Cellulitis of left leg: Status: Acute Plan Case d/w Dr Espinal. There is no sign of abscess on CT. There is no sign of septic knee on exam. Pt appropriately treated for cellulitis w/ abx. No indication for surgery or other orthopedic intervention at this time; please reconsult as necessary. Time Spent With Patient Critical Care time: I spent a total of [] minutes of critical care time on this patient's care today; this time is exclusive of procedural time.
[2022-05-27 08:03] LABS: Add Manual Diff / Slide Review NO; Basophils Absolute Auto 0 /uL (0-100); Basophils Percent Auto 0.4 % (0-2); Eosinophils Absolute Auto 100 /uL (0-450); Eosinophils Percent Auto 1.5 % (2-4); Hematocrit 37.9 % (36-46); Hemoglobin 12.5 g/dL (12.0-16.0); Lymphocytes Absolute Auto 900 /uL (1100-4500); Mean Corpuscular HGB Conc 33.1 % (30-36); Mean Corpuscular Hemoglobin 28.4 PG (26-34); Monocytes Absolute Auto 500 /uL (0-900); Monocytes Percent Auto 9.9 % (3-14); Neutrophils Absolute Auto 3800 /uL (1500-7000); Neutrophils Percent Auto 71.2 % (50-75); Platelet Count 126 X10^3/uL (150-400); Red Cell Distribution Width 13.7 % (11.6-14.8); White Blood Cell Count 5.4 X10^3/uL (4.5-11.0)
[2022-05-27 08:14] LABS: Blood Urea Nitrogen 6 mg/dL (7-17); Calcium 7.8 mg/dL (8.4-10.2); Carbon Dioxide 23 mmol/L (22-32); Chloride 106 mmol/L (98-107); Estimated Glomerular Filt Rate > 60 mL/min (>60); Glucose 86 mg/dL (70-100); HEMOLYSIS < 15 (0-50); Potassium 3.9 mmol/L (3.4-5.1); Sodium 136 mmol/L (137-145)
--- NOTE | 2022-05-27 09:19 | OT.IPNOTE ---
Spoke to Dr. Becerra and chantel to discharge OT services as not needed.
--- NOTE | 2022-05-27 09:22 | P.DS_ITS ---
History of Present Illness History of Present Illness Date Patient Seen: 05/27/22 Time Patient Seen: 09:22 Chief complaint: Leg pain, Chills Narrative: Per admitting provider, Jovanna Pleitez 31-year-old female with reported G6 PD deficiency hemolytic anemia, hypothyroidism, Been unable to obtain medication.? States 2 days ago she may or may not have scraped her left leg and developed redness swelling which has rapidly progressed up her leg.? She states she went to [place] last night was not seen although the leg does have purple marker circling areas.? Patient states she has had chills but no fevers.? She denies chest pain, s hortness of breath, abd pain, nausea, vomiting, diarrhea, constipation, urinary symptoms, any other recent illness injury or trauma..? She has pain in the leg /10, worsens with weight-bearing and ambulation, denies numbness or tingling, notes redness has been spreading and increasing rapidly over the past 48 hours.? Patient is denying any surgeries.? She states she uses tobacco, she denies alcoh ol, she denies any street drugs such as marijuana or IV or injectable drugs.? In the ED patient was tachycardic heart rate 118, tachypneic respiratory rate 24, slightly elevated blood pressure 143/88, at the time of admit temp 98.4?, BP 136/86, continues to be slightly tachycardic 116 and tachypneic respiratory rate 23, O2 saturation 99% on room air. Patient is stable and in no acute distress at this time. WBC 12.8 with a left shift neutrophils 11,400, H&H 11.6/33.8, sodium 130, procalcitonin 3.48, lipase WNL, COVID negative, hCG negative, tox screen is positive for amphetamines and methamphetamines, ESR 45, CRP 20.5. EKG sinus tachycardia rate 121 inverted T-wave in V4 through V6 leads, chest x-ray was negative for any acute cardiopulmonary processes. Lower left leg CT:Subcutaneous edema within the left lower extremity most prominent distally, no discrete abscess, soft tissue gas or evidence of myositis. There is a small to moderate left knee joint effusion with mild synovial thickening and enhancement as well as internal septations possible septic arthritis, and enlarged left inguinal lymph nodes. Patient admitted for lower left leg cellulitis. ? Discharge Providers Provider Date of admission: 05/25/22 22:23 Discharge Date: 05/27/22 Primary care physician: Abraham Armstrong MD Consults: 05/25/22 22:40 Consult to Dietitian, Adult Routine Comment: Reason For Exam: BMI 31.1 Consult to Occupational Therapy Evaluate & Treat Comment: Physician Instructions: Evaluate and treat Consult to Physical Therapy Evaluate & Treat Comment: Physician Instructions: Evaluate and Treat 05/25/22 22:42 Consult to GEOSPATIAL PROGRAM MANAGEMENT OFFICER - Lab Associate Routine Comment: GEOSPATIAL PROGRAM MANAGEMENT OFFICER Consult needed for:: Substance Abuse Assess Consult to Orthopedic Surgery Routine Comment: Consulting Provider: Monty Espinal Reason for consultation: Left leg cellulitis Has provider been notified: Yes 05/27/22 07:02 Consult to GEOSPATIAL PROGRAM MANAGEMENT OFFICER - Lab Associate Routine Comment: refusing care intermittently/concerned she needstx GEOSPATIAL PROGRAM MANAGEMENT OFFICER Consult needed for:: Behavioral Health Assess Social Determinants issue Discharge provider: Morgan Becerra DO Summary Hospital Course Discharge Diagnosis: 1. Lower left leg cellulitis, acute, present on admission 2. G6 PD deficiency-hemolytic anemia, acute on chronic, present on admission 3. Hypothyroidism, acquired, acute on chronic, present on admission 4. Positive tox screen, acute, present on admission 5.? Obesity, acute on chronic, present on admission Hospital Course: Jovanna Pleitez 31-year-old female with reported G6 PD deficiency hemolytic anemia, hypothyroidism admitted with L leg bullous cellulitis. She underwent ultrasound to rule out DVT. She developed streaking and marked swelling and was admitted for IV antibiotics and concern for possible necrotizing infection. She began to slowly improved with IV therapy, clindamycin was added on HD#1 for possible toxin production given bullous appearance. She was also on ceftriaxone and vancomycin for antiboitic coverage. On HD#2 she had much improvement in her swelling, pain, and appearance of her cellulitis. She was discharged home to complete another 10 days of antibiotics. She was discharged on augmentin and clindamycin given the degree of her infection. Her thyroid labs were evaluated given she had not been taking any repletion, and labs were consistent with possible subclinical hypothyroid with slightly elevated TSH at 6 with normal free t4, supplementation is not recommended at this time and repeat thyroid testing is recommended with PCP in a couple of months after infection resolves. Patient's obesity increased the patient's overall medical complexity and contributed to the degree of her cellulitis, along with increasing possible complications from her infection. Time Spent with Patient Time spent: Greater than 30 minutes Exam Vital Signs (past 8 hours): - 05/27/22 02:19 05/27/22 03:00 05/27/22 06:50 Temperature 97.5 F L 98.1 F Pulse Rate 87 93 H Respiratory Rate 18 20 Blood Pressure 108/71 115/76 Pulse Oximetry 100 100 Oxygen Delivery Method Room Air Oxygen Flow Rate 0 Oxygen Delivery Method Room Air Oxygen Flow Rate 0 Narrative Exam Narrative: General:? Patient is well developed and well nourished, in no distress at this time. HEENT:? Normocephalic, atraumatic, extraocular muscles intact, oral pharynx is clear and mucous membranes are moist. Neck: supple and symmetric, trachea is midline, no cervical adenopathy. Negative for JVD. Chest:? Normal AP diameter and contour without kyphoscoliosis, no tachypnea, equal chest rise bilaterally. Lungs:? CTA b/l no wheezing rhonchi or rales. Cardio:?RRR no m/r/g. Abdomen: S NT ND. No CVA tenderness. Musculoskeletal:? Muscle strength and tone are equal within normal limits, no deformity. Extremities: LLE edema with cellulitis noted below. No cyanosis or clubbing. Skin:? Pale,?left leg erythema much improved with less warmth as well, circumferential around calf with large bullae posteriorly, streaking noted in her left calf is much improved. Neuro:? Alert and orientated x3,? sensation to touch intact in all extremities, no gross deficits noted of cranial nerves. Psych:? Patient has a well-kept appearance, appropriate affect, mental status attitude thought context and judgment are appropriate for age. Objective Labs Result Diagrams: 05/27/22 07:32 05/27/22 07:32 Labs: Laboratory Results - last 24 hr 05/26/22 05/27/22 05/27/22 22:55 07:32 07:32 WBC 5.4 RBC 4.40 Hgb 12.5 Hct 37.9 MCV 86.0 MCH 28.4 MCHC 33.1 RDW 13.7 Plt Count 126 L Neut % (Auto) 71.2 Lymph % (Auto) 17.0 L [place] % (Auto) 9.9 Eos % (Auto) 1.5 L Baso % (Auto) 0.4 Neut # (Auto) 3800 Lymph # (Auto) 900 L [place] # (Auto) 500 Eos # (Auto) 100 Baso # (Auto) 0 Sodium 136 L Potassium 3.9 Chloride 106 Carbon Dioxide 23 BUN 6 L Creatinine 0.40 L Estimated GFR > 60 BUN/Creatinine Ratio 15.0 Glucose 86 Calcium 7.8 L Vancomycin Trough 10.8 PFSH Medical History (Updated 05/26/22 @ 03:33 by DEREK JansenUN[facility]) Anemia, deficiency, G-6-PD History of substance abuse Hypothyroidism (acquired) Family History (Reviewed 05/26/22 @ 03:35 by DEREK JansenUNIVERS[facility] OF [facility]) Mother Cancer Grandmother Hypothyroid Social History household members: friend(s) Smoking Status: Current every day smoker Discharge Plan Discharge Plan Patient Disposition: Home Provider Discharge Comment: You were admitted to the hospital with cellulitis of your left leg. This improved with antibiotics here but you will need to complete treatment of the infection at home with prescribed antibiotics. Please complete the entire course to reduce risk of recurrence. Discharge orders & Medications Prescriptions: New amoxicillin-pot clavulanate 875-125 mg tablet 1 tab PO BID 10 Days Qty: 20 0RF clindamycin HCl 300 mg capsule 300 mg PO Q6H 10 Days Qty: 40 0RF Discontinued clindamycin HCl 300 MG capsule 300 mg PO Q6H Qty: 28 0RF amoxicillin-pot clavulanate [Augmentin] 875 MG/125 MG tablet 875 mg PO BID Qty: 14 0RF Follow up/Referrals: Abraham Armstrong MD [Primary Care Provider] - Diet/Activity/Treatments Diet: Diet as Tolerated Activity: As tolerated. Visit Report/Discharge Packet Instructions: DI for Cellulitis -- Adult, Clindamycin, Amoxicillin and Clavulanic Acid Discharge Data Primary Care Provider: Abraham Armstrong Attending Provider: Verónica Obrien
[2022-05-27 10:06] VITALS: O2SAT 100
--- NOTE | 2022-05-27 10:15 | PC.NURSE ---
Pt is dressed and ready for discharge home with friend. IJ has been removed. Pt declined physical assessment this am stating that she is ready to go. Went over d/c instructions with Pt-discussed d/c meds, time of last dose, reviewed stroke education, encouraged Pt to try to elevated lower leg to reduce swelling and to complete her full course of antibiotics. Pt denies further questions and was taken out via w/c by [employer] to POV with friend and all belongings.
== END 2022-05-27 10:17 | disposition home or self-care (01) ==
LOC: ED 18:13 → AC 23:00
PROVIDERS: Emergency Medicine; Admitting Provider Nurse Practitioner Family; Emergency Provider Emergency Medicine; Family Provider Internal Medicine; PCP Internal Medicine; Referring Provider Emergency Medicine; Visit Provider Nurse Practitioner Family
DX: L03.116 Cellulitis of left lower limb (principal); M25.462 Effusion, left knee; D55.0 Anemia due to glucose-6-phosphate dehydrogenase [G6PD] deficiency; E03.9 Hypothyroidism, unspecified; Z91.14 Patient's other noncompliance with medication regimen; R82.5 Elevated urine levels of drugs, medicaments and biological substances; E66.9 Obesity, unspecified; Z20.822 Contact with and (suspected) exposure to COVID-19
CPT/HCPCS: 36415; 36569; 36592; 71045; 73701; 80048; 80053; 80202; 80305; 81003; 81015; 81025; 83605; 83690; 83735; 83880; 84145; 84439; 84443; 84703; 85025; 85610; 85651; 85730; 86140; 87040; 87635; 87797; 93005; 93971; 96365; 96366; 96367; 96368; 96375; 99284; 99291; C9803; G0378; J0692; J0696; J1170; J1650